=== PATIENT | female | born 1970 | race Caucasian/White ===

== ENCOUNTER 2018-08-10 08:00 | Outpatient (RCR) | payer OTHER, SELFPAY | END 2018-08-10 09:30 | disposition home or self-care (01) | LOC: PT.CARL 08:00 | PROVIDERS: Visit Provider Orthopaedic Surgery Adult Reconstructive Orthopaedic Surgery | DX: S93.402A Sprain of unspecified ligament of left ankle, initial encounter (principal) | CPT/HCPCS: 97010; 97110; 97112; 97163 ==

== ENCOUNTER → 2022-03-04 10:29 | Outpatient (CLI) | payer OTHER, SELFPAY ==
--- NOTE | 2022-03-04 10:34 | XR_ITS ---
FINAL REPORT CLINICAL HISTORY: fracture FINDINGS: LEFT TIBIA FIBULA 2 views were obtained. There is oblique nondisplaced fracture of the proximal fibula. There is no soft tissue abnormality. IMPRESSION: Oblique nondisplaced fracture of the proximal fibula. Reviewed, Interpreted and Dictated by Boris Lewis MD Transcribed by Elidia Mcnamara Authenticated and . [facility]
--- NOTE | 2022-03-04 11:54 | XR_ITS ---
FINAL REPORT CLINICAL HISTORY: ankle injury FINDINGS: LEFT ANKLE Three views of the left ankle were obtained. There is no acute fracture or dislocation. The joint spaces and mortise are intact. There is no soft tissue abnormality. IMPRESSION: No acute bony abnormality. Reviewed, Interpreted and Dictated by Boris Lewis MD Transcribed by Elidia Mcnamara Authenticated and [facility]
== END ==
PROVIDERS: PCP Family Medicine; Visit Provider Orthopaedic Surgery
DX: S82.402A Unspecified fracture of shaft of left fibula, initial encounter for closed fracture (principal); M25.572 Pain in left ankle and joints of left foot; S99.912A Unspecified injury of left ankle, initial encounter
CPT/HCPCS: 73590; 73610

== ENCOUNTER 2022-03-04 12:32 | Outpatient (RCR) | payer OTHER, SELFPAY | END 2022-03-04 13:30 | disposition home or self-care (01) | LOC: PT 12:32 | PROVIDERS: Visit Provider Orthopaedic Surgery | DX: S82.402A Unspecified fracture of shaft of left fibula, initial encounter for closed fracture (principal) | CPT/HCPCS: 97760 ==

== ENCOUNTER → 2022-04-01 10:19 | Outpatient (CLI) | payer OTHER, SELFPAY ==
--- NOTE | 2022-04-01 10:32 | XR_ITS ---
FINAL REPORT CLINICAL HISTORY: knee pain COMPARISON: None FINDINGS: Three views of the left knee reveal a nondisplaced fracture the proximal fibular metaphysis. No other fracture identified. The bony alignment is normal. The joint spaces are preserved. There is no evidence of joint effusion. No localized soft tissue abnormality is seen. IMPRESSION: Nondisplaced proximal fibular metaphysis fracture . Reviewed, Interpreted and Dictated by Robert Marshall III, MD Transcribed by Tiffani Montgomery Authenticated and [facility]
== END ==
PROVIDERS: PCP Family Medicine; Visit Provider Orthopaedic Surgery
DX: S82.402A Unspecified fracture of shaft of left fibula, initial encounter for closed fracture (principal)
CPT/HCPCS: 73562

== ENCOUNTER 2022-04-01 12:47 | Outpatient (RCR) | payer OTHER, SELFPAY | END 2022-04-01 14:00 | disposition home or self-care (01) | LOC: PT 12:47 | PROVIDERS: Visit Provider Orthopaedic Surgery | DX: S82.402A Unspecified fracture of shaft of left fibula, initial encounter for closed fracture (principal) | CPT/HCPCS: 97760 ==

== ENCOUNTER → 2022-04-29 10:08 | Outpatient (CLI) | payer OTHER, SELFPAY ==
--- NOTE | 2022-04-29 10:14 | XR_ITS ---
FINAL REPORT CLINICAL HISTORY: lt ankle pain COMPARISON: 03/04/2022 FINDINGS: Three views of the left ankle were obtained. There is no prior exam for comparison. There is no fracture or dislocation. The ankle mortise is intact. Soft tissues are normal. IMPRESSION: No acute osseous abnormality of the left ankle. Reviewed, Interpreted and Dictated by Sharon Anderson MD Transcribed by Tiffani Montgomery Authenticated and [facility]
== END ==
PROVIDERS: PCP Family Medicine; Visit Provider Orthopaedic Surgery
DX: S82.402A Unspecified fracture of shaft of left fibula, initial encounter for closed fracture (principal)
CPT/HCPCS: 73610

== ENCOUNTER 2023-06-14 13:18 | Outpatient (CLI) | payer OTHER, SELFPAY ==
--- NOTE | 2023-06-14 13:18 | MM_ITS ---
PROCEDURE INFORMATION: Exam: MG Bilateral Screening 3D Mammography Exam date and time: 06/14/2023 1:06 PM Age: 53 years old Clinical indication: Screening examination TECHNIQUE: Imaging protocol: Bilateral Screening tomosynthesis and 2D mammography including computer-aided detection (CAD) when performed. COMPARISON: No relevant prior studies available. FINDINGS: MAMMOGRAPHY: Breast composition: There are scattered areas of fibroglandular density. Mass: None. Architectural distortion: None. Calcifications: No suspicious calcifications. Asymmetric density: None. Skin thickening: None. Axillary adenopathy: None. IMPRESSION: No mammographic evidence of malignancy. Annual screening is recommended unless otherwise clinically indicated. ASSESSMENT: BI-RADS Category 1: Negative
== END 2023-06-14 23:59 ==
LOC: RAD 13:18
PROVIDERS: PCP Family Medicine; Visit Provider Family Medicine
DX: Z12.31 Encounter for screening mammogram for malignant neoplasm of breast (principal)
CPT/HCPCS: 77063; 77067

== ENCOUNTER 2023-06-25 16:41 | Emergency (ER) | payer OTHER, SELFPAY ==
[2023-06-25] VITALS (9 sets, daily range): BP systolic 135–211; BP diastolic 76–101; PULSE 74–92; RESP 14–20; TEMP 36.9–37.2; O2SAT 97–98; BMI 31.4; BMI 31.2
--- NOTE | 2023-06-25 17:22 | ED_ITS ---
Discharge Plan Disposition Patient Disposition: Still a Patient Condition: Good Prescriptions Prescriptions: No Action fluticasone propionate [Flonase Allergy Relief] 50 mcg/actuation spray,suspension 1 spray NS DAILY Rx Instructions: administer into each nostril loratadine [Allergy Relief (loratadine)] 10 mg tablet 10 mg PO DAILY aspirin 81 mg tablet,delayed release (DR/EC) 81 mg PO DAILY Patient Comments: TAKE 1 TABLET BY MOUTH ONCE DAILY nitroglycerin 0.4 mg tablet, sublingual 0.4 mg SL Q5-15M PRN (Reason: chest pain) Patient Comments: DISSOLVE ONE TABLET UNDER THE TONGUE EVERY 5 MINUTES NEEDED FOR CHEST PAIN. DO NOT EXCEED A TOTAL OF 3 DOSES IN 15 MINUTES [facility] 40-10-5-3.3 mg tablet PO DAILY PRN (Reason: chest pain) cholecalciferol (vitamin D3) 50 mcg (2,000 unit) capsule 50 mcg PO DAILY mecobalamin (vitamin B12) 5,000 mcg tablet,disintegrating 5,000 mcg PO DAILY ibuprofen 600 mg tablet 600 mg PO Q6H PRN isosorbide mononitrate 60 mg tablet extended release 24 hr 60 mg PO DAILY Qty: 90 3RF rosuvastatin 10 mg tablet 10 mg PO DAILY Qty: 90 3RF metoprolol succinate 25 mg tablet extended release 24 hr 25 mg PO DAILY Qty: 90 3RF Referrals Follow up/Referrals: Diony Still MD [Primary Care Provider] - See instructions Discharge ED Provider: Ritika Sandoval [facility] [place] HPI General Stated complaint: Right jaw red,swollen,warm to touch,painful Mode of Arrival: Ambulatory Source of Information: Patient Limitations: No Limitations Time Seen by Provider: 06/25/23 17:23 Description of Symptoms (Recalled from Triage Doc. by RN): Pt's symptoms are right sided under ear in jaw line pain. It is red, swollen, and hot to the touch. HEENT Symptoms (Recalled from RN notes): Yes Resp Symptoms (Recalled from RN notes): No Skin Symptoms (Recalled from RN notes): No MS Symptoms (Recalled from RN notes): No Functional Status (Recalled from RN notes): n/a History of Present Illness Provider Complaint: Patient states that she was fine last night when she laid down but woke up this morning with pain and swelling on the right side of her face on her right jaw and ear area States initially it was hurting but as the day went on it continued to get larger, become more red and tender and now is also having swelling into her ear States that she didnt feel anything bite or sting her but this evening it was hot to the touch so she came in Related Data Home Medications Medication Instructions Recorded Confirmed aspirin 81 mg tablet,delayed 81 mg PO DAILY 09/27/21 06/25/23 release cartilage 40 mg-collagen II 10 tab PO DAILY PRN chest pain 09/27/21 01/10/23 mg-boron 5 mg-hyaluronate 3.3 mg tablet ([employer]) cholecalciferol (vitamin D3) 50 50 mcg PO DAILY 09/27/21 06/25/23 mcg (2,000 unit) capsule fluticasone propionate 50 1 spray intranasal DAILY 09/27/21 06/25/23 mcg/actuation nasal spray,suspension (Flonase Allergy Relief) ibuprofen 600 mg tablet 600 mg PO Q6H PRN 09/27/21 01/10/23 loratadine 10 mg tablet (Allergy 10 mg PO DAILY 09/27/21 06/25/23 Relief (loratadine)) mecobalamin (vitamin B12) 5,000 5,000 mcg PO DAILY 09/27/21 06/25/23 mcg disintegrating tablet nitroglycerin 0.4 mg sublingual 0.4 mg sublingual Q5-15M PRN chest 09/27/21 06/25/23 tablet pain Previous Rx's Medication Instructions Recorded isosorbide mononitrate 60 mg 60 mg PO DAILY HTN #90 tabs 05/25/22 tablet,extended release 24 hr rosuvastatin 10 mg tablet 10 mg PO DAILY HLD #90 tabs 05/25/22 metoprolol succinate 25 mg 25 mg PO DAILY HTN #90 tabs 05/20/23 tablet,extended release 24 hr Allergies Allergy/AdvReac Type Severity Reaction Status Date / Time methylprednisolone Allergy Headache Verified 06/25/23 17:18 [From Medrol] zinc Allergy Nausea Verified 06/25/23 17:18 Worker's Comp Is this a Worker's Comp case?: No [facility] Disclaimer: The information contained in this section may have been updated after the patient was seen, as this information can be updated by other users. Medical History Atypical pneumonia Left fibular fracture Surgical History H/O neck surgery History of cardiac cath History of section Family History Grandmother Stroke Cancer Mother Cancer Father Cancer Social History Smoking Status: Never smoker alcohol intake: never substance use type: denies use current occupational status: employed ([employer]) Travel in the last 8 weeks: None household members: spouse and family housing: house ROS Obtained: Yes All systems reviewed & no additional complaints except as documented and Yes Systems reviewed as appropriate & no additional complaints except as documented Constitutional Constitutional: Reports system reviewed and no additional complaints, except as documented, Reports as per HPI, Denies body ache, Denies chills and Reports headache(s) (light headache right side) ENT Ears, Nose, Mouth, and Throat: Reports system reviewed and no additional complaints, except as documented, Reports as per HPI and Reports headache(s) (light headache right side) Cardiovascular Cardiovascular: Reports system reviewed and no additional complaints, except as documented and Reports as per HPI Respiratory Respiratory: Reports system reviewed and no additional complaints, except as documented and Reports as per HPI Gastrointestinal Gastrointestingal: Reports system reviewed and no additional complaints, except as documented and as per HPI Musculoskeletal Musculoskeletal: Reports system reviewed and no additional complaints, except as documented and Reports as per HPI Integumentary/Breasts Skin/Breast: Reports system reviewed and no additional complaints, except as documented, Reports as per HPI and Reports other Comments: redness, swelling, warmth on right side of face/jaw area into her right ear and feels like it is restricting her from turning her head Neurologic Neurologic: Reports headache(s) (light headache right side) Physical Exam General General appearance: alert and in no apparent distress ENT ENT exam: Present mucous membranes moist Expanded ENT Exam External ear exam: Present other (swelling and redness noted ) Respiratory Respiratory exam: Present normal lung sounds bilaterally; Absent respiratory distress or wheezes Cardiovascular Cardiovascular exam: Present regular rate, normal rhythm and normal heart sounds Neurological Exam Neurological exam: Present alert, oriented X3 and normal gait Skin Skin exam: Present other Expanded Skin Exam Body image: 2 1. red, hard knot like area that is tender and warm to the touch noted with swelling and redness extending into right earlobe and auricle Medical Decision Making Aba Inquiry Pt receiving controlled substance: No Aba was queried for this patient: No Vital Signs: 06/25/23 17:00 Temperature 99.0 F Temperature Source Oral Pulse Rate [Right Radial] 86 Respiratory Rate 19 Blood Pressure [Right Arm] 178/83 H Blood Pressure Mean [Right Arm] 114 Blood Pressure Source [Right Arm] Automatic Cuff Blood Pressure Position [Right Arm] Sitting 02 Sat by Pulse Oximetry 98 Oxygen Delivery Method Room Air Medical Decision Narrative: Patient states that she woke up this morning with soreness to the right side of jaw/neck area that throughout the day has continued to get worse and causing the swelling to extend to her right ear lobe and auricle, area hard, red, warm to the touch and reports pain when palpated Denies known injury, bite or sting, concern for abscess discussed with patient and will transfer to the ED for more extensive work up and evaluation and patient agreed Patient moved to the ED for further work up
--- NOTE | 2023-06-25 17:36 | CT_ITS ---
PROCEDURE INFORMATION: Exam: CT Maxillofacial With Contrast Exam date and time: 06/25/2023 6:03 PM Age: 53 years old Clinical indication: Mass, lump, or swelling; Other: Face and ear; Additional info: Right face and ear swelling TECHNIQUE: Imaging protocol: Computed tomography of the face with contrast. Radiation optimization: All CT scans at this facility use at least one of these dose optimization techniques: automated exposure control; mA and/or kV adjustment per patient size (includes targeted exams where dose is matched to clinical indication); or iterative reconstruction. Contrast material: ISOVUE; Contrast volume: 100 ml; Contrast route: IV; COMPARISON: No relevant prior studies available. FINDINGS: Orbital cavities: Orbits are normal. Globes are unremarkable. Bones/joints: No acute fracture. Paranasal sinuses: Normal. No air-fluid levels. Soft tissues: Swelling and subcutaneous reticulation of the right ear with periauricular reactive lymph nodes. There is additional finding of swelling of the right parotid gland with superficial fascial fat reticulation, as well as, prominent paraglandular and intraglandular soft tissue nodularity presumed reactive lymph nodes. Reactive right level 2A and 2B lymph nodes are noted. IMPRESSION: 1. Right ear cellulitis with reactive changes of the surrounding periauricular dasha stations and right parotid gland (superimposed parotitis is not excluded). No focal fluid collection. No evidence for aggressive osseous related disease. 2. Reactive right level 2A and 2 B nodes are additionally noted. Recommend clinical follow-up to ensure resolution.
[2023-06-25] MEDS: ACETAMINOPHEN 500MG TAB 1000 MG PO (17:40)
--- NOTE | 2023-06-25 17:40 | ED_ITS ---
Discharge Plan Disposition Patient Disposition: Still a Patient Condition: Good Prescriptions Prescriptions: New levofloxacin 500 mg tablet 500 mg PO DAILY 7 Days Qty: 7 0RF metronidazole 500 mg tablet 500 mg PO Q8H 7 Days Qty: 21 0RF No Action fluticasone propionate [Flonase Allergy Relief] 50 mcg/actuation spray,suspension 1 spray NS DAILY Rx Instructions: administer into each nostril loratadine [Allergy Relief (loratadine)] 10 mg tablet 10 mg PO DAILY aspirin 81 mg tablet,delayed release (DR/EC) 81 mg PO DAILY Patient Comments: TAKE 1 TABLET BY MOUTH ONCE DAILY nitroglycerin 0.4 mg tablet, sublingual 0.4 mg SL Q5-15M PRN (Reason: chest pain) Patient Comments: DISSOLVE ONE TABLET UNDER THE TONGUE EVERY 5 MINUTES NEEDED FOR CHEST PAIN. DO NOT EXCEED A TOTAL OF 3 DOSES IN 15 MINUTES [facility] 40-10-5-3.3 mg tablet PO DAILY PRN (Reason: chest pain) cholecalciferol (vitamin D3) 50 mcg (2,000 unit) capsule 50 mcg PO DAILY mecobalamin (vitamin B12) 5,000 mcg tablet,disintegrating 5,000 mcg PO DAILY ibuprofen 600 mg tablet 600 mg PO Q6H PRN isosorbide mononitrate 60 mg tablet extended release 24 hr 60 mg PO DAILY Qty: 90 3RF rosuvastatin 10 mg tablet 10 mg PO DAILY Qty: 90 3RF metoprolol succinate 25 mg tablet extended release 24 hr 25 mg PO DAILY Qty: 90 3RF Referrals Follow up/Referrals: Diony Still MD [Primary Care Provider] - See instructions Activity Restrictions/Add. Instructions Additional Instructions/Restrictions: You seemed to have an infection of your right parotid gland called parotitis and the skin of your right ear called otitis externa. We have prescribed 1 week of antibiotics for this so please complete the full course of antibiotics but if you are worsening despite taking antibiotics return to the emergency department for evaluation immediately. Clinical Impressions Clinical Impression: Otitis externa, Acute parotitis Instructions Patient Instructions: DI for Parotitis-Adult, DI for Otitis Externa Discharge ED Provider: Ritika Sandoval General Adult HPI General Chief complaint: Ear Stated complaint: Right jaw red,swollen,warm to touch,painful Time Seen by Provider: 06/25/23 17:23 Mode of Arrival: Ambulatory Source of Information: Patient Limitations: No Limitations Description of Symptoms (Recalled from ER Triage Doc. by RN): Pt's symptoms are right sided under ear in jaw line pain. It is red, swollen, and hot to the touch. History of Present Illness HPI narrative: 53-year-old female with previous medical history of hypertension presents with right face swelling for 1 day. When patient woke up this morning she noted an area of swelling over her right jaw that over the course of the day has progressed to include her right lower ear. She has some right face pain worsening with rotating her neck and with palpation. No pain with swallowing. No neck rigidity. No fevers or chills. She has never had pain like this before. No known dental problems. Related Data Home Medications Medication Instructions Recorded Confirmed aspirin 81 mg tablet,delayed 81 mg PO DAILY 09/27/21 06/25/23 release cartilage 40 mg-collagen II 10 tab PO DAILY PRN chest pain 09/27/21 01/10/23 mg-boron 5 mg-hyaluronate 3.3 mg tablet ([employer]) cholecalciferol (vitamin D3) 50 50 mcg PO DAILY 09/27/21 06/25/23 mcg (2,000 unit) capsule fluticasone propionate 50 1 spray intranasal DAILY 09/27/21 06/25/23 mcg/actuation nasal spray,suspension (Flonase Allergy Relief) ibuprofen 600 mg tablet 600 mg PO Q6H PRN 09/27/21 01/10/23 loratadine 10 mg tablet (Allergy 10 mg PO DAILY 09/27/21 06/25/23 Relief (loratadine)) mecobalamin (vitamin B12) 5,000 5,000 mcg PO DAILY 09/27/21 06/25/23 mcg disintegrating tablet nitroglycerin 0.4 mg sublingual 0.4 mg sublingual Q5-15M PRN chest 09/27/21 06/25/23 tablet pain Previous Rx's Medication Instructions Recorded isosorbide mononitrate 60 mg 60 mg PO DAILY HTN #90 tabs 05/25/22 tablet,extended release 24 hr rosuvastatin 10 mg tablet 10 mg PO DAILY HLD #90 tabs 05/25/22 metoprolol succinate 25 mg 25 mg PO DAILY HTN #90 tabs 05/20/23 tablet,extended release 24 hr levofloxacin 500 mg tablet 500 mg PO DAILY 7 days #7 tabs 06/25/23 metronidazole 500 mg tablet 500 mg PO Q8H 7 days #21 tabs 06/25/23 Allergies Allergy/AdvReac Type Severity Reaction Status Date / Time methylprednisolone Allergy Headache Verified 06/25/23 17:18 [From Medrol] zinc Allergy Nausea Verified 06/25/23 17:18 [facility] Disclaimer: The information contained in this section may have been updated after the patient was seen, as this information can be updated by other users. Medical History Left fibular fracture Atypical pneumonia Surgical History H/O neck surgery History of section History of cardiac cath Family History Grandmother Stroke Cancer Mother Cancer Father Cancer Social History Smoking Status: Never smoker alcohol intake: never substance use type: denies use current occupational status: employed ([employer]) Travel in the last 8 weeks: None household members: spouse and family housing: house ROS Obtained: Yes All systems reviewed & no additional complaints except as documented Physical Exam General General appearance: alert and in no apparent distress Head Head exam: atraumatic and normocephalic Eye Eye exam: Present normal appearance, PERRL and EOMI ENT ENT exam: Present normal oropharynx, mucous membranes moist, TM's normal bilaterally and other (Swelling approximately 4 mm in diameter with erythema and tenderness located over the right temporomandibular joint. Swelling and erythema also involves the right lower ear. No trismus. No neck rigidity. Oropharynx is normal.) Neck Neck exam: Present normal inspection, full ROM and trachea midline; Absent meningismus or lymphadenopathy Chest Chest inspection: Present normal inspection and symmetric chest wall rise; Absent tenderness Respiratory Respiratory exam: Present normal lung sounds bilaterally; Absent respiratory distress Cardiovascular Cardiovascular exam: Present regular rate and normal rhythm; Absent JVD Abdominal Exam Abdominal exam: Present soft and normal bowel sounds; Absent distention, tenderness or guarding Extremities Exam Extremities exam: Present normal inspection, full ROM and normal capillary refill; Absent calf tenderness Back Exam Back exam: Present normal inspection; Absent tenderness Neurological Exam Neurological exam: Present alert and oriented X3 Psychiatric Psychiatric exam: Present normal affect and normal mood Skin Skin exam: Present warm, dry, intact and normal color Lymphatic Lymphatic Findings: no adenopathy Medical Decision Making Medical Records Medical records reviewed: Yes I reviewed the patient's medical records. Aba Inquiry Pt receiving controlled substance: No Aba was queried for this patient: No Vital Signs: 06/25/23 17:00 06/25/23 17:40 06/25/23 17:56 Temperature 99.0 F 98.5 F Temperature Source Oral Oral Pulse Rate 92 H Pulse Rate [Right Radial] 86 75 Respiratory Rate 19 14 Blood Pressure 176/101 H Blood Pressure [Right Arm] 178/83 H 211/97 H Blood Pressure Mean Blood Pressure Mean [Right Arm] 114 135 Blood Pressure Source [Right Arm] Automatic Cuff Blood Pressure Position [Right Arm] Sitting 02 Sat by Pulse Oximetry 98 97 98 Oxygen Delivery Method Room Air Room Air Room Air 06/25/23 18:30 06/25/23 19:00 06/25/23 19:30 Temperature Temperature Source Pulse Rate 80 78 78 Pulse Rate [Right Radial] Respiratory Rate 20 18 Blood Pressure 166/96 H 157/98 H 139/84 Blood Pressure [Right Arm] Blood Pressure Mean 109 113 Blood Pressure Mean [Right Arm] Blood Pressure Source [Right Arm] Blood Pressure Position [Right Arm] 02 Sat by Pulse Oximetry 98 97 98 Oxygen Delivery Method Room Air Room Air Room Air 06/25/23 20:00 06/25/23 20:30 Temperature Temperature Source Pulse Rate 80 74 Pulse Rate [Right Radial] Respiratory Rate 18 20 Blood Pressure 143/76 H 135/86 Blood Pressure [Right Arm] Blood Pressure Mean 110 102 Blood Pressure Mean [Right Arm] Blood Pressure Source [Right Arm] Blood Pressure Position [Right Arm] 02 Sat by Pulse Oximetry 97 98 Oxygen Delivery Method Room Air Room Air Lab Data Lab Results 06/25/23 17:35: WBC 9.1, RBC 4.39, Hgb 12.5, Hct 39.6, MCV 90.3, MCH 28.6, MCHC 31.6 L, RDW 14.4, Plt Count 270, MPV 8.6, Neut % (Auto) 73.1, Lymph % (Auto) 18.7, [place] % (Auto) 5.7, Eos % (Auto) 1.9, Baso % (Auto) 0.7, Neut # (Auto) 6.7, Lymph # (Auto) 1.7, [place] # (Auto) 0.5, Eos # (Auto) 0.2, Baso # (Auto) 0.1, Sodium 140, Potassium 3.8, Chloride 104, Carbon Dioxide 31 H, Anion Gap 8.8, BUN 11, Creatinine 0.80, Estimated Creat Clear 105, Estimated GFR 75, Est GFR ( Amer) 90, Glucose 94, Calcium 9.4 06/25/23 17:35 06/25/23 17:35 Orders (Tests/Meds): ED MEDICATIONS Generic Name Dose Route Start Last Admin Trade Name Freq PRN Reason Stop Dose Admin Levofloxacin/Dextrose 500 mg in 100 mls @ 100 mls/hr 06/25/23 19:30 06/25/23 20:11 Levaquin 500mg/100ml Premix IV 07/05/23 19:29 100 mls/hr Q24H PAM Administration Discontinued Medications Generic Name Dose Route Start Last Admin Trade Name Freq PRN Reason Stop Dose Admin Acetaminophen 1,000 mg 06/25/23 17:36 06/25/23 17:40 Acetaminophen 500mg Tab PO 06/25/23 17:37 1,000 mg ONCE ONE Administration Metronidazole 500 mg in 100 mls @ 100 mls/hr 06/25/23 19:25 06/25/23 19:47 Flagyl 500mg/100ml Ivpb IV 06/25/23 20:24 100 mls/hr ONCE ONE Administration Iopamidol 100 ml 06/25/23 18:04 06/25/23 18:05 Iopamidol-370 (76%);100ml Bottle IV 06/25/23 18:05 100 ml ONCE ONE Administration Sodium Chloride 10 ml 06/25/23 18:04 06/25/23 18:05 Sodium Chloride 0.9% 10ml Syr (Rad Only) IV 06/25/23 18:05 10 ml ONCE ONE Administration ORDERS Category Date Time Status CT facial bones w con Stat Cat Scan 06/25/23 17:36 Completed BMP [Basic Metabolic Panel] Stat Lab 06/25/23 17:35 Completed CBC [Complete Blood Count Auto Diff] Stat Lab 06/25/23 17:35 Completed Medical Decision Narrative: Presentation concerning for abscess, lymphadenitis, parotitis, otitis externa, cellulitis, among others. For this reason obtain CT of the face, CBC, BMP. CBC I independently reviewed and interpreted and was significant for no leukocytosis or anemia, no significant abnormalities. BMP I independently reviewed and interpreted also no significant abnormalities. CT of the face independently reviewed and interpreted and was concerning for cellulitis of the right ear and possible parotitis on the right but no abscess. Discussed with patient that she should be admitted for IV antibiotics, serial exams to ensure that she does not have a resistant infection and that she is improving with antibiotics that can be stepdown to oral antibiotics. Patient is very reticent to be admitted so based on shared decision making with the patient, we determined she could have 1 dose of IV antibiotics in the emergency department, be prescribed a course of oral antibiotics, follow closely with her PCP, and return to the emergency department if any worsening. For this reason gave IV levofloxacin for pseudomonal coverage of ear khadar and metronidazole to cover anaerobes (in addition to the Levaquin) for parotitis. Patient tolerated this well in the emergency department and was appropriate for prescribing this course of antibiotics and following closely with her PCP. Discharged while stable after tolerating p.o. Critical Care Critical Care Time Critical Care Time: No
[2023-06-25 17:44] LABS: Basophils # 0.1 K/mm3 (0-0.2); Basophils % 0.7 % (0.1-2.0); Eosinophils # 0.2 K/mm3 (0.0-0.4); Eosinophils % 1.9 % (0.1-12.0); Hematocrit 39.6 % (37.0-47.0); Hemoglobin 12.5 g/dL (12.2-16.2); Lymphocytes # 1.7 K/mm3 (0.7-4.5); Lymphocytes % 18.7 % (10-50); Mean Corpuscular HGB Conc 31.6 g/dL (31.8-35.4); Mean Corpuscular Hemoglobin 28.6 pg (27.0-31.2); Mean Corpuscular Volume 90.3 fl (81-99); Mean Platelet Volume 8.6 fl (7.4-10.4); Monocytes # 0.5 K/mm3 (0.1-1.0); Monocytes % 5.7 % (1.7-9.3); Neutrophils # 6.7 K/mm3 (1.8-7.8); Neutrophils % 73.1 % (37.0-80.0); Platelet Count 270 K/mm3 (142-424); Red Blood Count 4.39 M/mm3 (4.20-5.40); Red Cell Distribution Width 14.4 % (11.5-17.5); White Blood Count 9.1 K/mm3 (4.8-10.8)
[2023-06-25 17:46] LABS: Chloride 104 mmol/L (98-107); Potassium 3.8 mmoL/L (3.5-5.1); Sodium 140 mmol/L (136-145)
[2023-06-25 17:49] LABS: Anion Gap 8.8 mEq/L (5-15); Blood Urea Nitrogen 11 mg/dl (7-17); Carbon Dioxide 31 mmol/L (22.0-30.0); Creatinine Clearance Estimated 105 mL/min (50-200); Estimated Glomerular Filt Rate 75 ml/min (>60); GFR (African American) 90 ML/MIN (>60)
[2023-06-25 17:50] LABS: Calcium 9.4 mg/dl (8.4-10.2); Glucose 94 mg/dl (74-100)
--- NOTE | 2023-06-25 17:59 | PC.NURSE ---
pt to scan via wheelchair
[2023-06-25] MEDS: SODIUM CHLORIDE 0.9% 10ML SYR (RAD ONLY) 10 ML IV (18:05)
[2023-06-25] MEDS: IOPAMIDOL-370 (76%);100ML BOTTLE 100 ML IV (18:05)
[2023-06-25] MEDS: METRONIDAZ/SOD CHL 500 MG/100 ML PIGGYBACK 100 MG IV (19:47)
[2023-06-25] MEDS: LEVOFLOXACIN/D5W 500 MG/100 ML PIGGYBACK 100 MG IV (20:11)
== END 2023-06-25 21:28 | disposition home or self-care (01) ==
LOC: UTC 17:01 → ER 17:25
PROVIDERS: Emergency Provider Emergency Medicine; PCP Family Medicine
DX: H60.91 Unspecified otitis externa, right ear (principal); K11.21 Acute sialoadenitis; R68.84 Jaw pain; I10 Essential (primary) hypertension
CPT/HCPCS: 70487; 80048; 85025; 96365; 96366; 99284; J1956; Q9967

== ENCOUNTER 2023-09-07 07:20 | Outpatient (CLI) | payer OTHER, SELFPAY ==
--- NOTE | 2023-09-07 07:21 | US_ITS ---
FINAL REPORT CLINICAL HISTORY: abd pain COMPARISON: None FINDINGS: Sonographic images of the abdomen were obtained. There is diffuse increased echogenicity in the liver consistent with fatty infiltration of the liver. The gallbladder has an unremarkable appearance without evidence of gallstones. There is no evidence of biliary ductal dilatation. The common hepatic duct measures 4 mm, which is within normal limits. Limited images of the pancreas are unremarkable. The spleen size is normal. The right kidney measures 11.1 in length. The left kidney measures 12 in length. There is normal renal echogenicity. There is no evidence of hydronephrosis. The aorta has an unremarkable appearance. Limited images of the inferior vena cava are unremarkable. IMPRESSION: Fatty infiltration of the liver. No evidence of gallstones or biliary ductal dilatation. Reviewed, Interpreted and Dictated by Robert Marshall III, MD Transcribed by Polly Avalos Authenticated and [facility]
== END 2023-09-07 23:59 | disposition home or self-care (01) ==
LOC: RAD 07:21
PROVIDERS: PCP Nurse Practitioner Family; Visit Provider Nurse Practitioner Family
DX: R10.11 Right upper quadrant pain (principal)
CPT/HCPCS: 76700

== ENCOUNTER 2023-10-05 09:18 | Outpatient (CLI) | payer OTHER, SELFPAY ==
--- NOTE | 2023-10-05 09:19 | NM_ITS ---
FINAL REPORT CLINICAL HISTORY: RUQ pain 9:30AM 8.51 MCI TC CHOLETEC 1.6 MCG CCK PAIN WITH CCK FINDINGS: Sequential anterior projection images of the abdomen were obtained after the intravenous injection of 8.51 mCi technetium 99m Choletec. There is normal uptake of radiotracer by the liver. The bile ducts are visualized by 15 minutes. Gallbladder activity is seen by 25 minutes. Bowel activity is noted by 15 minutes. After 1 hour, 1.6 ?g of CCK was injected intravenously for calculation of gallbladder ejection fraction. The gallbladder ejection fraction is 19 %, which is abnormally low. IMPRESSION: Gallbladder ejection fraction is abnormally low which can be seen with chronic cholecystitis. Reviewed, Interpreted and Dictated by Robert Marshall III, MD Transcribed by Kassandra Rogel Authenticated and [facility]
[2023-10-05] MEDS: SODIUM CHLORIDE 0.9% 10ML SYR (RAD ONLY) 10 ML IV (12:13)
[2023-10-05] MEDS: SINCALIDE 1.6 MCG in 0.9 % SODIUM CHLORIDE 50 ML 100 MCG IV (12:13)
[2023-10-05] MEDS: ISOTOPE CHOLETECH;1 DOSE (UP TO 15 MCI) IV (12:14)
== END 2023-10-05 23:59 | disposition home or self-care (01) ==
LOC: RAD 09:19
PROVIDERS: PCP Family Medicine; Visit Provider Family Medicine
DX: R10.11 Right upper quadrant pain (principal)
CPT/HCPCS: 78227; A9537; J2805

== ENCOUNTER 2023-11-02 10:21 | Day surgery (SDC) | payer OTHER, SELFPAY ==
[2023-10-31 13:42] VITALS: BMI 35.9
[2023-11-02] VITALS (10 sets, daily range): BP systolic 128–146; BP diastolic 68–89; PULSE 62–81; RESP 12–18; TEMP 36.8–43; O2SAT 96–97
--- NOTE | 2023-11-02 10:41 | EXP.ANES.CKL ---
[facility] Disclaimer: The information contained in this section may have been updated after the patient was seen, as this information can be updated by other users. Medical History Hypertension Left fibular fracture Atypical pneumonia Surgical History H/O neck surgery History of section History of cardiac cath Family History Grandmother Stroke Cancer Mother Cancer Father Cancer Social History Smoking Status: Never smoker alcohol intake: never substance use type: denies use current occupational status: employed ([employer]) Travel in the last 8 weeks: None household members: spouse and family housing: house [facility] Anesthesia Checklist Patient Identification Patient Identification: Arm Band and Verbal (Name & ) Structural Data Admitted From: Home Planned Operative Procedure/s: Lap. cholecystectomy Consent for Planned Operative Procedure(s) Verified: Yes Verified Documents: Surgical Consent and History and Physical NPO Status Verified Time NPO: 00:00 Additional verifications Anesthesia Reactions: No Airway Assessment Mallampati Score:: Class II C-Spine Mobility Assessed: Yes TMJ Mobility Assessed: Yes Dentition: Good Dentition Neurological Assessment Level of Consciousness: Awake Hx Seizures: No Numbness or tingling in extremities: No Anesthesia Plan Anesthesia Risk discussed: Yes Anesthesia Plan: Verified ASA Class: II Anesthesia Type: General
--- NOTE | 2023-11-02 12:43 | P.OP_ITS ---
Date of procedure: 11/02/23 Pre-op Diagnosis:: Biliary dyskinesia Post-op Diagnosis:: Biliary dyskinesia Chronic cholecystitis Procedure performed:: Laparoscopic cholecystectomy Surgeon:: En Camarillo MD SHELTER SUPERVISOR:: Susanna Diaz Anesthesia: GETA Estimated blood loss (mL): 15 Operative findings:: Infundibular thickening Operative note:: After informed consent was obtained, the patient was taken to the operating room and placed in the supine position. General anesthesia was induced and the abdomen was prepped and draped in a sterile fashion. After infiltration with local anesthetic an infraumbilical incision was made. A Veress needle was placed in position. The abdomen was insufflated. A 5 mm optical trocar was placed in position. Under direct visualization, a 12 mm trocar was placed in the subxiphoid position and 2 additional 5 mm trocars were placed in the right upper quadrant. The gallbladder was elevated up and over the liver margin. The tissue around the cystic duct was carefully dissected. 3 clips were placed proximally and the duct was transected with harmonic brintey. Harmonic britney were then utilized to dissect the gallbladder away from the liver margin with careful attention to the control of the cystic artery. The gallbladder was placed in a retrieval bag and removed through the subxiphoid trocar site. The right upper quadrant was thoroughly irrigated. No active bleeding or bile leak was noted. Fascia at the subxiphoid trocar site was reapproximated utilizing the NeoClose device. The remaining trocars were removed. All wounds were irrigated and skin was closed with 4-0 Monocryl in an interrupted mattress fashion to facilitate hemostasis. Dressings were applied. The patient's anesthetic agents were reversed and extubation was completed prior to transfer to recovery in stable condition. Condition: stable Disposition: PACU Specimens:: Gallbladder Complications:: No immediate
--- NOTE | 2023-11-02 12:55 | EXP.ANES.I ---
[facility] Anesthesia Record Part I Anesthesia Record I Intake, IV Amount: 1,300 Hydration: Adequate Estimated blood loss (mL): 25 Urine output (mL): 0 Blood Pressure: 137/86 SaO2: 96 Pulse Rate: 73 Airway Patency: Patent Respiratory Rate: 12 Temperature: 98.3 F Patient is:: Drowsy Stable to PACU at:: 12:55
[2023-11-03 08:28] VITALS: BP 146/89; PULSE 68; RESP 18; TEMP 36.8; O2SAT 96
--- NOTE | 2023-11-03 08:28 | EXP.ANES.II ---
[facility] Anesthesia Record Part II Anesthesia Record Part II Discharge Time: 13:25 Destination: Surgical Day Care (OP Surgery) PACU nurse assessment reviewed?: Yes Patient Condition:: Good Anesthesia Complications:: None Swallowing reflex intact?: Yes Airway Patency: Patent Cyanosis?: No Blood Pressure: 146/89 SaO2: 96 Respiratory Rate: 18 Pulse Rate: 68 Temperature: 98.3 F Mental Status: Alert & Oriented Pain level:: 0 Nausea and/or vomitting:: None Intake, IV Amount: 0 Hydration: Adequate
== END 2023-11-02 13:56 | disposition home or self-care (01) ==
PROVIDERS: PCP Family Medicine; Visit Provider Surgery
PROC: 0FT44ZZ Resection of Gallbladder, Percutaneous Endoscopic Approach (ICD-10-PCS; CPT 47562; principal; 2023-11-02 11:45)
DX: R10.11 Right upper quadrant pain (principal); K82.8 Other specified diseases of gallbladder; K81.1 Chronic cholecystitis
CPT/HCPCS: 47562; 96374; J3490; J0131; J0690; J1100; J1885; J2250; J2405; J3010; J7120

== ENCOUNTER 2024-02-11 10:06 | Emergency (ER) | payer OTHER, SELFPAY ==
[2024-02-11 11:00] VITALS: BP 160/93; PULSE 81; RESP 18; TEMP 36.9; O2SAT 97; BMI 35.5
--- NOTE | 2024-02-11 11:01 | EXP.UTC ---
Discharge Plan Disposition Patient Disposition: Home, Self-Care Condition: Good Prescriptions Prescriptions: New azithromycin [Zithromax] 250 mg tablet 250 mg PO UD DOSE PK Qty: 6 0RF Rx Instructions: Take two (2) tablets today, then one (1) tablet days #2 thru #5 benzonatate 100 mg capsule 100 mg PO TIDP PRN (Reason: Cough) Qty: 30 0RF No Action fluticasone propionate [Flonase Allergy Relief] 50 mcg/actuation spray,suspension 1 spray NS DAILY Rx Instructions: administer into each nostril loratadine [Allergy Relief (loratadine)] 10 mg tablet 10 mg PO DAILY aspirin 81 mg tablet,delayed release (DR/EC) 81 mg PO DAILY Patient Comments: TAKE 1 TABLET BY MOUTH ONCE DAILY nitroglycerin 0.4 mg tablet, sublingual 0.4 mg SL Q5-15M PRN (Reason: chest pain) Patient Comments: DISSOLVE ONE TABLET UNDER THE TONGUE EVERY 5 MINUTES NEEDED FOR CHEST PAIN. DO NOT EXCEED A TOTAL OF 3 DOSES IN 15 MINUTES [facility] 40-10-5-3.3 mg tablet 1 tab PO DAILY PRN (Reason: chest pain) cholecalciferol (vitamin D3) 50 mcg (2,000 unit) capsule 50 mcg PO DAILY mecobalamin (vitamin B12) 5,000 mcg tablet,disintegrating 5,000 mcg PO DAILY metoprolol succinate 25 mg tablet extended release 24 hr 25 mg PO DAILY Qty: 90 3RF isosorbide mononitrate 60 mg tablet extended release 24 hr See Rx Instructions .ROUTE .COMPLEX Qty: 90 0RF Dose Instruction: TAKE 1 TABLET BY MOUTH ONCE DAILY FOR HIGH BLOOD PRESSURE Rx Instructions: TAKE 1 TABLET BY MOUTH ONCE DAILY FOR HIGH BLOOD PRESSURE rosuvastatin 10 mg tablet 10 mg PO DAILY Qty: 90 0RF Referrals Follow up/Referrals: Sangeeta Still APRN [Primary Care Provider] - See instructions Activity Restrictions/Add. Instructions Additional Instructions/Restrictions: Drink plenty of fluids. Take tylenol or ibuprofen for pain or fever. Take the medications as directed. Follow up with your regular doctor. GO TO THE ER FOR ANY WORSENING SYMPTOMS Clinical Impressions Clinical Impression: Sinusitis, Bronchitis Stand Alone Forms Stand Alone Forms: Work/School Release Instructions Patient Instructions: Sinusitis, DI for Sinusitis Print Language Print Language: Jamaican Discharge ED Provider: Christopher HintonH [facility] HPI General Stated complaint: congestion, sore throat, cough, runny nose Time Seen by Provider: 02/11/24 11:01 Related Data Home Medications ?Medication ?Instructions ?Recorded ?Confirmed aspirin 81 mg tablet,delayed 81 mg PO DAILY 09/27/21 11/08/23 release cartilage 40 mg-collagen II 10 1 tab PO DAILY PRN chest pain 09/27/21 11/08/23 mg-boron 5 mg-hyaluronate 3.3 mg tablet (Spotwish) cholecalciferol (vitamin D3) 50 50 mcg PO DAILY 09/27/21 02/11/24 mcg (2,000 unit) capsule fluticasone propionate 50 1 spray intranasal DAILY 09/27/21 11/08/23 mcg/actuation nasal spray,suspension (Flonase Allergy Relief) loratadine 10 mg tablet (Allergy 10 mg PO DAILY 09/27/21 11/08/23 Relief (loratadine)) mecobalamin (vitamin B12) 5,000 5,000 mcg PO DAILY 09/27/21 11/08/23 mcg disintegrating tablet nitroglycerin 0.4 mg sublingual 0.4 mg sublingual Q5-15M PRN chest 09/27/21 11/08/23 tablet pain Previous Rx's ?Medication ?Instructions ?Recorded metoprolol succinate 25 mg 25 mg PO DAILY HTN #90 tabs 05/20/23 tablet,extended release 24 hr isosorbide mononitrate 60 mg See Rx Instructions .Route 01/29/24 tablet,extended release 24 hr .COMPLEX #90 tabs rosuvastatin 10 mg tablet 10 mg PO DAILY HLD #90 tabs 02/08/24 azithromycin 250 mg tablet 250 mg PO UD DOSE PK #6 tabs 02/11/24 (Zithromax) benzonatate 100 mg capsule 100 mg PO TIDP PRN Cough #30 caps 02/11/24 Allergies Allergy/AdvReac Type Severity Reaction Status Date / Time alcohol Allergy Verified 11/08/23 13:18 methylprednisolone (From Allergy Headache Verified 11/08/23 13:18 Medrol) metronidazole (From Flagyl) Allergy Nausea Verified 11/08/23 13:18 zinc Allergy Nausea Verified 11/08/23 13:18 [facility] Disclaimer: The information contained in this section may have been updated after the patient was seen, as this information can be updated by other users. Medical History Hypertension Left fibular fracture Atypical pneumonia Surgical History History of laparoscopic cholecystectomy H/O neck surgery History of section History of cardiac cath Family History Grandmother Stroke Cancer Mother Cancer Father Cancer Social History Smoking Status: Never smoker alcohol intake: never substance use type: denies use current occupational status: employed ([employer]) Travel in the last 8 weeks: None household members: spouse and family housing: house Have you lived/traveled outside US in past 30 days?: No Contact w/someone who lives/traveled outside US past 30 days?: No Exposure to someone with infectious disease in past 14 days?: No Do you have a fever (greater than 100.4 F or 38 C)?: Yes Have you tested positive for COVID-19: No Exposed to someone with COVID-19 in past 14 days?: No Do you have a sore throat?: Yes Do you have a cough?: Yes Do you have any weakness?: No Do you have any diarrhea?: No Are you experiencing any unusual bleeding?: No Do you have any muscle aches/pain?: No Do you have any abdominal pain?: No Are you experiencing loss of taste or smell?: No ROS Obtained: Yes All systems reviewed & no additional complaints except as documented Constitutional Constitutional: Reports poor appetite Eyes Eyes: Reports system reviewed and no additional complaints, except as documented ENT Ears, Nose, Mouth, and Throat: Reports as per HPI Cardiovascular Cardiovascular: Reports system reviewed and no additional complaints, except as documented and Denies chest pain Respiratory Respiratory: Denies shortness of breath, Reports chest congestion, Reports cough, Denies stridor and Denies wheezing Gastrointestinal Gastrointestingal: Reports system reviewed and no additional complaints, except as documented; Denies abdominal pain, diarrhea or vomiting Musculoskeletal Musculoskeletal: Reports system reviewed and no additional complaints, except as documented and Denies arthralgias Integumentary/Breasts Skin/Breast: Reports system reviewed and no additional complaints, except as documented and Denies rash Neurologic Neurologic: Denies paresthesias Allergic/Immunologic Allergic/Immunologic: Denies wheezing Physical Exam General General appearance: alert and in no apparent distress Eye Eye exam: Present normal appearance, PERRL and EOMI ENT ENT exam: Present mucous membranes moist and normal external ear exam Expanded ENT Exam External ear exam: Present normal external inspection TM/Canal exam: Bilateral TM: erythema and bulging Nose exam: Absent sinus tenderness Nasal speculum exam: Bilateral: normal Mouth exam: Present normal external inspection; Absent drooling Teeth exam: Present normal inspection Throat exam: Present tonsillar erythema and tonsillomegaly Neck Neck exam: Present normal inspection, full ROM and trachea midline; Absent tenderness, lymphadenopathy or thyromegaly Chest Chest inspection: Present normal inspection and symmetric chest wall rise; Absent tenderness or rash Respiratory Respiratory exam: Present normal lung sounds bilaterally; Absent respiratory distress, wheezes, stridor or accessory muscle use Cardiovascular Cardiovascular exam: Present regular rate, normal rhythm and normal heart sounds Abdominal Exam Abdominal exam: Present soft; Absent distention, tenderness, guarding, rebound or rigidity Extremities Exam Extremities exam: Present normal inspection, full ROM and normal capillary refill; Absent tenderness or calf tenderness Back Exam Back exam: Present normal inspection and full ROM; Absent tenderness Neurological Exam Neurological exam: Present alert and oriented X3 Psychiatric Psychiatric exam: Present normal affect and normal mood Skin Skin exam: Present warm, dry, intact and normal color Lymphatic Lymphatic Findings: no adenopathy Medical Decision Making Medical Records Medical records reviewed: No I reviewed the patient's medical records. Screening: Per USPSTF and CDC recommendations, given the prevalence of disease in our region, it is our hospital?s policy to screen for HIV and viral Hepatitis for all patients aged 18 and over and those with ongoing risk factors. Aba Inquiry Pt receiving controlled substance: No
[2024-02-11 11:12] LABS: UTC Influenza A Antigen Negative (Negative); UTC Influenza B Antigen Negative (Negative)
[2024-02-11 11:46] VITALS: BP 160/93; PULSE 81; RESP 18; TEMP 36.9
[2024-02-11 13:51] LABS: Coronavirus 19, PCR Detected (NotDetected); Influenza A, PCR Not Detected (NotDetected); Influenza B, PCR Not Detected (NotDetected)
== END 2024-02-11 11:53 | disposition home or self-care (01) ==
PROVIDERS: Emergency Provider Nurse Practitioner Family; PCP Nurse Practitioner Family
DX: J01.90 Acute sinusitis, unspecified (principal); J20.9 Acute bronchitis, unspecified; R09.81 Nasal congestion; R07.0 Pain in throat; R05.9 Cough, unspecified; R63.8 Other symptoms and signs concerning food and fluid intake
CPT/HCPCS: 87636; 87804; 99212; G0381

== ENCOUNTER 2024-05-21 09:53 | Outpatient (CLI) | payer OTHER, SELFPAY ==
[2024-05-21 17:36] LABS: Basophils % 0.4 % (0.1-2.0); Eosinophils # 0.3 K/mm3 (0.0-0.4); Eosinophils % 4.3 % (0.1-12.0); Hematocrit 41.5 % (37.0-47.0); Hemoglobin 13.2 g/dL (12.2-16.2); Mean Corpuscular HGB Conc 31.8 g/dL (31.8-35.4); Mean Corpuscular Hemoglobin 28.9 pg (27.0-31.2); Mean Corpuscular Volume 90.8 fl (81-99); Monocytes # 0.6 K/mm3 (0.1-1.0); Monocytes % 8.4 % (1.7-9.3); Neutrophils # 4.2 K/mm3 (1.8-7.8); Neutrophils % 58.6 % (37.0-80.0); Platelet Count 302 K/mm3 (142-424); Red Blood Count 4.57 M/mm3 (4.20-5.40); Red Cell Distribution Width 13.3 % (11.5-17.5); White Blood Count 7.1 K/mm3 (4.8-10.8)
[2024-05-21 18:07] LABS: Alanine Aminotransferase 25 U/L (12-78); Albumin Level 4.7 g/dl (3.5-5.0); Albumin/Globulin Ratio 1.6 (1.1-1.8); Alkaline Phosphatase 106 U/L (38-126); Anion Gap 10.6 mEq/L (5-15); Aspartate Amino Transferase 31 U/L (14-36); Bilirubin,Total 0.7 mg/dl (0.2-1.3); Blood Urea Nitrogen 12 mg/dl (7-17); Calcium 10.1 mg/dl (8.4-10.2); Carbon Dioxide 29 mmol/L (22.0-30.0); Chloride 104 mmol/L (98-107); Chol/HDL Ratio 2.9 (1-3.5); Cholesterol 148 mg/dl (140-200); Estimated Glomerular Filt Rate 74 ml/min (>60); GFR (African American) 90 ML/MIN (>60); Globulin 2.9 g/dL (1.3-3.2); Glucose 88 mg/dl (74-100); HDL Cholesterol 51 mg/dl (40-60); Potassium 4.6 mmoL/L (3.5-5.1); Sodium 139 mmol/L (136-145); Total Protein,Serum 7.6 g/dl (6.3-8.2); Triglycerides 113 mg/dl (30-150); VLDL Cholesterol 23 mg/dL (0-40)
[2024-05-21 18:19] LABS: Direct LDL Cholesterol 67.62 mg/dL (100-129)
[2024-05-21 18:24] LABS: T4 (Thyroxine) 10.6 ug/dl (5.53-11.0)
[2024-05-21 18:38] LABS: Thyroid Stimulating Hormone 3.51 uIU/mL (0.465-4.68)
[2024-05-21 19:55] LABS: HIV Combo NEGATIVE (Negative)
[2024-05-21 20:04] LABS: Hepatitis C Ab Qual. W/ RFX NEGATIVE (Negative)
[2024-05-23 14:12] LABS: FSH 39.4 mIU/mL (.)
== END 2024-05-21 23:59 | disposition home or self-care (01) ==
LOC: LAB.DROPOF 05-22 12:16
PROVIDERS: PCP Family Medicine; Visit Provider Family Medicine
DX: E78.5 Hyperlipidemia, unspecified (principal); I10 Essential (primary) hypertension; Z11.4 Encounter for screening for human immunodeficiency virus [HIV]; Z11.59 Encounter for screening for other viral diseases
CPT/HCPCS: 80053; 80061; 83001; 84436; 84443; 85025; 86803; 87389

== ENCOUNTER 2024-06-26 13:47 | Outpatient (CLI) | payer OTHER, SELFPAY ==
--- NOTE | 2024-06-26 14:00 | MM_ITS ---
PROCEDURE INFORMATION: Exam: MG Bilateral Screening 3D Mammography Exam date and time: 06/26/2024 1:55 PM Age: 54 years old Clinical indication: Screening examination TECHNIQUE: Imaging protocol: Bilateral Screening tomosynthesis and 2D mammography including computer-aided detection (CAD) when performed. COMPARISON: 1. MG MM DIG SCREENING MAMM BI W/CAD 06/14/2023 1:06 PM 2. MG SCREEN MAMMO W CAD BILAT 06/01/2022 2:38 PM FINDINGS: MAMMOGRAPHY: Breast composition: The breasts are almost entirely fatty. Mass: None. Architectural distortion: None. Calcifications: No suspicious calcifications. Asymmetric density: None. Skin thickening: None. Axillary adenopathy: None. IMPRESSION: No mammographic evidence of malignancy. Annual screening is recommended unless otherwise clinically indicated. ASSESSMENT: BI-RADS Category 1: Negative.
== END 2024-06-26 23:59 | disposition home or self-care (01) ==
LOC: RAD 13:48
PROVIDERS: PCP Family Medicine; Visit Provider Family Medicine
DX: Z12.31 Encounter for screening mammogram for malignant neoplasm of breast (principal)
CPT/HCPCS: 77063; 77067

== ENCOUNTER 2024-08-22 13:30 | Outpatient (CLI) | payer OTHER, SELFPAY ==
[2024-08-22 16:49] LABS: Coronavirus 19, PCR Not Detected (NotDetected); Human Rhinovirus Not Detected (NotDetected); Influenza A, PCR Not Detected (NotDetected); Influenza B, PCR Not Detected (NotDetected); Respiratory Syncytial Virus Not Detected (NotDetected)
--- OUTSIDE RECORDS SUMMARY | 2024-08-23 10:21 | XMS_ITS | Clinical Summary ---
Author Organization [facility] Address [address] [place] [address] Care Team Providers Care Top Cager Name Role Phone Chioma Dent [employer] Primary Care Provider [phone] Allergies No known active allergies Social History Tobacco Use Types Packs/Day Years Used Date Smoking Tobacco: Never Assessed Comments Unknown Sex and Gender Information Value Date Recorded Sex Assigned at Not on file Legal Sex Female 1:45 PM EDT Gender Identity Not on file Sexual Orientation Not on file Last Filed Vital Signs Vital Sign Reading Time Taken Comments Blood Pressure 139/73 07/05/2021 2:04 PM EDT Pulse 65 07/05/2021 2:04 PM EDT Temperature - - Respiratory Rate 12 07/05/2021 2:04 PM EDT Oxygen Saturation 97% 07/05/2021 2:04 PM EDT Inhaled Oxygen Concentration - - Weight 77.1 kg (170 lb) 07/05/2021 1:48 PM EDT Height 147.3 cm (4' 10 ) 07/05/2021 1:48 PM EDT Body Mass Index 35.53 07/05/2021 1:48 PM EDT Plan of Treatment Health Maintenance Due Date Last Done Comments [facility]-Depression Screening 1969 [facility]-/Child/Adol SDOH Screenings 1969 [facility]- SDOH Screenings 1987 [facility]-Adult SDOH Screenings 1987 [facility]-DTaP,Tdap,and Td Vaccine s (1 - Tdap) 1988 [facility]-Hepatitis B Vaccines (1 of 3 - 19+ 3-dose series) 1988 [facility]-Pap Smear 1990 [facility]-Cervical Cancer Screening 1999 [facility]-HPV/Cotest 1999 CT Colonography 2014 Colonoscopy 2014 FIT-DNA 2014 FIT 2014 FOBT 2014 Sigmoidoscopy 2014 [facility]-Colorectal Cancer Screening 2014 [facility]-Pneumococcal Vaccine: 50 + Years (1 of 1 - PCV) 2019 [facility]-Zoster Vaccines (1 of 2) 2019 IHT-[id number]-90 Vaccine (1 - 20 24-25 season) 2023 [facility]-Influenza Vaccine ([place] Ended) 2024 HPV Vaccines Aged Out No longer eligi ble based on patient's age to complete this topic [facility]-HIB Vaccines Aged Out No longer e ligible based on patient's age to complete this topic [facility]-Hepatitis A Vaccines Aged Out No longer eligible based on patient's age to complete this topic [facility]-IPV Vaccines Aged Out No longer e ligible based on patient's age to complete this topic [facility]-Rotavirus Vaccines Aged Out No lo nger eligible based on patient's age to complete this topic Insurance MEDICAID Care Teams Top Cager Relationship Specialty Start Date End Date Chioma Dent APRN [address] [place] [address] PCP - General 07/05/21
== END 2024-08-22 23:59 | disposition home or self-care (01) ==
LOC: LAB.DROPOF 08-23 10:18
PROVIDERS: PCP Nurse Practitioner Family; Visit Provider Nurse Practitioner Family
DX: J02.9 Acute pharyngitis, unspecified (principal); R05.9 Cough, unspecified
CPT/HCPCS: 87070; 87077; 87631